=== PATIENT | female | born 1960 | race Caucasian/White ===

== ENCOUNTER 2018-03-22 09:13 | Inpatient (IN) | payer MEDICAID, OTHER ==
[~2018-03-22] VITALS: Ht 162.6 cm; Wt 55.7 kg
[2018-03-22 10:08] LABS: BASOPHILS % (AUTO) 0.7 % (0.0-2.0); EOSINOPHILS % (AUTO) 3.3 % (1.0-6.0); HEMATOCRIT 35.9 % (36-46); HEMOGLOBIN 12.4 g/dL (12.0-16.0); LYMPHOCYTES # (AUTO) 1.4 K/uL (1.0-4.8); LYMPHOCYTES % (AUTO) 26.3 % (22.0-44.0); MEAN CORPUSCULAR HEMOGLOBIN 31.2 pg (26.0-34.0); MEAN CORPUSCULAR HGB CONC 34.5 G/dL (31.0-37.0); MEAN CORPUSCULAR VOLUME 90 fL (80-100); MONOCYTES # (AUTO) 0.5 K/uL (0.1-1.0); MONOCYTES % (AUTO) 8.6 % (2.0-9.0); NEUTROPHILS # (AUTO) 3.3 K/uL (1.8-7.7); NEUTROPHILS % (AUTO) 61.1 % (40.0-70.0); PLATELET COUNT (AUTO) 225 K/uL (150-450); RED BLOOD CELL COUNT(AUTO) 3.98 MIL/uL (4.00-5.20); RED CELL DISTRIBUTION WIDTH 12.7 % (11.5-14.5)
[2018-03-22 10:16] LABS: ANION GAP 9 mmol/L (8-16); CALCIUM, TOTAL 8.5 mg/dL (8.8-10.5); CARBON DIOXIDE 25 mmol/L (22-29); CHLORIDE 106 mmol/L (98-107); CREATININE 0.98 mg/dL (0.60-1.30); GLOMERULAR FILTR. RATE CALC 58 mL/min (>60); GLUCOSE,RANDOM 115 mg/dL (70-110); POTASSIUM 3.4 mmol/L (3.5-5.1); SODIUM SERUM 140 mmol/L (136-145); UREA NITROGEN, BLOOD 21 mg/dL (7-18)
[2018-03-22 10:22] LABS: ALANINE AMINOTRANSFERASE 31 U/L (12-78); ALBUMIN 3.7 g/dL (3.4-5.0); ALKALINE PHOSPHATASE 51 U/L (46-116); ASPARTATE AMINOTRANSFERASE 33 U/L (15-37); BILIRUBIN,TOTAL 0.5 mg/dL (0.1-1.0); TOTAL PROTEIN, SERUM 6.5 g/dL (6.4-8.2)
[2018-03-22] MEDS ORDERED: LORazepam 1 MG TABLET PO ONE (11:00)
[2018-03-22] MEDS ORDERED: ARIPiprazole 10 MG TABLET PO ONE (11:00)
[2018-03-22] MEDS ORDERED: DiphenhydrAMINE HCL 25 MG CAPSULE PO ONE (11:00)
[2018-03-22] MEDS ORDERED: POTASSIUM CHLORIDE 20 MEQ ER TABLET PO ONE (11:00)
[2018-03-22] MEDS ORDERED: LORazepam 2 MG TABLET PO PRN (13:15)
[2018-03-22] MEDS ORDERED: HALOPERIDOL 5 MG TABLET PO PRN (13:15)
[2018-03-22 19:47] VITALS: BP 109/68
[2018-03-22] MEDS ORDERED: DOCUSATE SODIUM 100 MG CAPSULE PO PRN (20:15)
[2018-03-22] MEDS ORDERED: GuaiFENesin/D-METHORPHAN [SUGAR-FREE] 200-20MG/10 ML SYRUP UDCUP PO PRN (20:15)
[2018-03-22] MEDS ORDERED: ALBUTEROL SULFATE HFA 90 MCG/PUFF 8 GM INHALER IH PRN (20:15)
[2018-03-22] MEDS ORDERED: LOPERAMIDE HCL 2 MG CAPSULE PO PRN (20:15)
[2018-03-22] MEDS ORDERED: MAG HYDROX/AL HYDROX/SIMETH ES 30 ML SUSPENSION UDCUP PO PRN (20:15)
[2018-03-22] MEDS ORDERED: ACETAMINOPHEN 325 MG TABLET PO PRN (20:15)
[2018-03-22] MEDS ORDERED: CloNIDine HCL 0.1 MG TABLET PO PRN (20:15)
[2018-03-22] MEDS ORDERED: PETROLATUM,WHITE 71 GM JELLY TP PRN (20:15)
[2018-03-22] MEDS ORDERED: ONDANSETRON HCL 4 MG TABLET PO PRN (20:15)
[2018-03-23 06:40] VITALS: BP 111/73
[2018-03-23 08:26] VITALS: BP 110/67
[2018-03-23] MEDS: PRAVASTATIN SODIUM 40 MG TABLET PO SCH (08:36)
[2018-03-23] MEDS: ASPIRIN 81 MG CHEWABLE TABLET PO SCH (08:36)
[2018-03-23 08:41] LABS: BASOPHILS % (AUTO) 0.6 % (0.0-2.0); EOSINOPHILS % (AUTO) 4.7 % (1.0-6.0); HEMATOCRIT 37.7 % (36-46); LYMPHOCYTES # (AUTO) 1.7 K/uL (1.0-4.8); LYMPHOCYTES % (AUTO) 42.9 % (22.0-44.0); MEAN CORPUSCULAR HEMOGLOBIN 31.2 pg (26.0-34.0); MEAN CORPUSCULAR HGB CONC 34.5 G/dL (31.0-37.0); MEAN CORPUSCULAR VOLUME 91 fL (80-100); MONOCYTES # (AUTO) 0.4 K/uL (0.1-1.0); MONOCYTES % (AUTO) 10.2 % (2.0-9.0); NEUTROPHILS # (AUTO) 1.7 K/uL (1.8-7.7); NEUTROPHILS % (AUTO) 41.6 % (40.0-70.0); PLATELET COUNT (AUTO) 235 K/uL (150-450); RED BLOOD CELL COUNT(AUTO) 4.17 MIL/uL (4.00-5.20); RED CELL DISTRIBUTION WIDTH 12.7 % (11.5-14.5)
[2018-03-23 09:02] LABS: HEMOGLOBIN A1C 5.8 % (4.5-6.2)
[2018-03-23 09:54] LABS: ALANINE AMINOTRANSFERASE 28 U/L (12-78); ALBUMIN 3.3 g/dL (3.4-5.0); ALKALINE PHOSPHATASE 49 U/L (46-116); ANION GAP 10 mmol/L (8-16); ASPARTATE AMINOTRANSFERASE 25 U/L (15-37); BILIRUBIN,TOTAL 0.4 mg/dL (0.1-1.0); CALCIUM, TOTAL 8.6 mg/dL (8.8-10.5); CARBON DIOXIDE 24 mmol/L (22-29); CHLORIDE 104 mmol/L (98-107); CHOL/HDL RATIO 2.6 (3.9-5.7); CHOLESTEROL 174 mg/dL (131-200); CREATININE 0.82 mg/dL (0.60-1.30); GLOMERULAR FILTR. RATE CALC > 60 mL/min (>60); GLUCOSE,RANDOM 140 mg/dL (70-110); HDL CHOLESTEROL 66 mg/dL (40-60); LDL CHOL (CALC.) 97 mg/dL (0-130); POTASSIUM 4.1 mmol/L (3.5-5.1); SODIUM SERUM 138 mmol/L (136-145); TOTAL PROTEIN, SERUM 6.2 g/dL (6.4-8.2); TRIGLYCERIDES 55 mg/dL (15-150); UREA NITROGEN, BLOOD 18 mg/dL (7-18)
[2018-03-23] MEDS: MAGNESIUM HYDROXIDE SUSPENSION 30 ML UDCUP PO PRN (10:02)
[2018-03-23] MEDS: ARIPiprazole 10 MG TABLET PO SCH (12:08)
[2018-03-23 16:30] VITALS: BP 122/75
[2018-03-24 03:43] VITALS: BP 116/68
[2018-03-24 08:15] VITALS: BP 125/71
[2018-03-24] MEDS: ARIPiprazole 10 MG TABLET PO SCH (08:53)
[2018-03-24] MEDS: PRAVASTATIN SODIUM 40 MG TABLET PO SCH (08:53)
[2018-03-24] MEDS: ASPIRIN 81 MG CHEWABLE TABLET PO SCH (08:53)
[2018-03-24 09:09] LABS: FOLATE SERUM 11.7 ng/mL (5.4-)
[2018-03-24 16:00] VITALS: BP 114/69
[2018-03-24] MEDS: MAGNESIUM HYDROXIDE SUSPENSION 30 ML UDCUP PO PRN (16:23)
[2018-03-25 07:03] VITALS: BP 120/68
[2018-03-25] MEDS: ASPIRIN 81 MG CHEWABLE TABLET PO SCH (08:25)
[2018-03-25] MEDS: ARIPiprazole 10 MG TABLET PO SCH (08:25)
[2018-03-25] MEDS: PRAVASTATIN SODIUM 40 MG TABLET PO SCH (08:25)
[2018-03-25] MEDS ORDERED: ARIPiprazole 15 MG TABLET PO SCH (09:00)
[2018-03-25 12:32] VITALS: BP 114/64
[2018-03-25] MEDS: IBUPROFEN 400 MG TABLET PO PRN (14:08)
[2018-03-25 16:09] VITALS: BP 123/71
[2018-03-25] MEDS: MAGNESIUM HYDROXIDE SUSPENSION 30 ML UDCUP PO PRN (21:06)
[2018-03-26 06:41] VITALS: BP 119/65
[2018-03-26 08:30] VITALS: BP 120/74
[2018-03-26] MEDS: ASPIRIN 81 MG CHEWABLE TABLET PO SCH (08:39)
[2018-03-26] MEDS: ARIPiprazole 15 MG TABLET PO SCH (08:39)
[2018-03-26] MEDS: PRAVASTATIN SODIUM 40 MG TABLET PO SCH (08:40)
[2018-03-26 16:14] VITALS: BP 114/76
[2018-03-26 17:44] VITALS: BP 122/73
[2018-03-26] MEDS: IBUPROFEN 400 MG TABLET PO PRN (17:44)
[2018-03-26] MEDS: ZOLPIDEM TARTRATE 10 MG TABLET PO PRN (20:35)
[2018-03-27 07:29] VITALS: BP 108/65
[2018-03-27] MEDS: ARIPiprazole 15 MG TABLET PO SCH (08:55)
[2018-03-27] MEDS: PRAVASTATIN SODIUM 40 MG TABLET PO SCH (08:55)
[2018-03-27] MEDS: ASPIRIN 81 MG CHEWABLE TABLET PO SCH (08:55)
[2018-03-27 09:48] VITALS: BP 110/67
[2018-03-27] MEDS: IBUPROFEN 400 MG TABLET PO PRN (13:32)
[2018-03-27 13:33] VITALS: BP 118/67
[2018-03-27 16:00] VITALS: BP 111/72
[2018-03-27] MEDS: ZOLPIDEM TARTRATE 10 MG TABLET PO PRN (20:38)
[2018-03-28 06:55] VITALS: BP 118/71
[2018-03-28 08:17] VITALS: BP 118/69
[2018-03-28 08:30] LABS: APPEARANCE,URINE CLEAR (CLEAR); BILIRUBIN,URINE NEGATIVE (NEGATIVE); GLUCOSE, URINE (UA) NEGATIVE (NEGATIVE); KETONES,URINE NEGATIVE (NEGATIVE); LEUKOCYTE ESTERASE ,URINE NEGATIVE (NEGATIVE); NITRATE,URINE NEGATIVE (NEGATIVE); OCCULT BLOOD,URINE NEGATIVE (NEGATIVE); PH,URINE 6.5 (5.0-8.0); PROTEIN,URINE NEGATIVE (NEGATIVE); UROBILINOGEN,URINE 0.2 mg/dL (<=1.0)
[2018-03-28] MEDS: ARIPiprazole 15 MG TABLET PO SCH (10:21)
[2018-03-28] MEDS: PRAVASTATIN SODIUM 40 MG TABLET PO SCH (10:22)
[2018-03-28] MEDS: ASPIRIN 81 MG CHEWABLE TABLET PO SCH (10:22)
[2018-03-28] MEDS ORDERED: ARIP15TA2 PO (11:08)
[2018-03-28] MEDS ORDERED: ASPI81 PO (11:09)
[2018-03-28] MEDS ORDERED: PRAV40TA4 PO (11:09)
== END 2018-03-28 11:30 | disposition home or self-care (01) | DRG 750 ==
LOC: EMS 09:15 → B3A 13:51
DX: F25.0 Schizoaffective disorder, bipolar type (principal); E11.9 Type 2 diabetes mellitus without complications; E87.6 Hypokalemia; D72.819 Decreased white blood cell count, unspecified; L80 Vitiligo; M79.7 Fibromyalgia; Z59.0 Homelessness; Z79.82 Long term (current) use of aspirin; Z79.899 Other long term (current) drug therapy
CPT/HCPCS: 82607; 82746; 83036; 84443; 99285; G0480